=== PATIENT | male | born 1960 | race Hispanic/Latino ===

== ENCOUNTER → 2017-10-06 | Outpatient (CLI) | payer OTHER | END | disposition home or self-care (01) | LOC: RAH 14:56 | PROVIDERS: ATTEND Family Medicine | DX: Z01.818 Encounter for other preprocedural examination (principal); R05 Cough | CPT/HCPCS: 71046 ==

== ENCOUNTER 2019-01-18 01:52 | Emergency (ER) | payer OTHER ==
[2019-01-18] MEDS ORDERED: DICYCLOMINE HCL 20 MG TAB ONE (03:40)
[2019-01-18] MEDS ORDERED: LEVOFLOXACIN 500 MG TABLET ONE (04:06)
== END 2019-01-18 04:11 | disposition home or self-care (01) ==
LOC: EDH 01:52
DX: R19.7 Diarrhea, unspecified (principal); I10 Essential (primary) hypertension; E78.5 Hyperlipidemia, unspecified; F43.10 Post-traumatic stress disorder, unspecified; Z88.6 Allergy status to analgesic agent
CPT/HCPCS: 87046

== ENCOUNTER 2019-02-16 05:30 | Day surgery (SDC) | payer OTHER ==
[~2019-02-16] VITALS: Ht 165.1 cm; Wt 90.7 kg
[~2019-02-16 05:30] MED LIST: AMLO5TAB9 PO; ENAL20TA PO; IRON; TRAZ-187 PO
[2019-02-16] MEDS ORDERED: SODIUM CHLORIDE 0.9% 1000ML 1,000 ML IV ONE (05:41)
[2019-02-16 06:00] VITALS: BP 138/82
[2019-02-16] MEDS ORDERED: PROPOFOL 1000 MG/100 ML 100 ML IV ONE (06:15)
[2019-02-16] MEDS ORDERED: LIDOCAINE HCL 1% 20 ML VIAL ONE (06:16)
[2019-02-16] MEDS ORDERED: SIMETHICONE 40 MG/0.6 ML ML ONE (06:30)
[2019-02-16 07:26] VITALS: BP 105/76
[2019-02-16 07:31] VITALS: BP 118/75
[2019-02-16 07:36] VITALS: BP 121/68
[2019-02-16 07:41] VITALS: BP 130/83
[2019-02-16 07:48] VITALS: BP 137/82
== END 2019-02-16 07:57 | disposition home or self-care (01) ==
LOC: ENDO 05:30 → DAH 05:30 → ENDO 07:57
PROVIDERS: ATTEND Internal Medicine Gastroenterology
DX: Z12.11 Encounter for screening for malignant neoplasm of colon (principal); K63.5 Polyp of colon; K29.50 Unspecified chronic gastritis without bleeding; K57.30 Diverticulosis of large intestine without perforation or abscess without bleeding; I10 Essential (primary) hypertension; F43.10 Post-traumatic stress disorder, unspecified; F32.9 Major depressive disorder, single episode, unspecified; F41.9 Anxiety disorder, unspecified; Z79.899 Other long term (current) drug therapy; Z88.8 Allergy status to other drugs, medicaments and biological substances; E78.2 Mixed hyperlipidemia; B96.81 Helicobacter pylori [H. pylori] as the cause of diseases classified elsewhere
CPT/HCPCS: 43239; 45380; 88305; A4606; J2704; J7030